=== PATIENT | female | born 1975 | race Caucasian/White ===

== ENCOUNTER 2018-01-27 11:25 | Emergency (ER) | payer SELFPAY ==
[~2018-01-27] VITALS: Ht 162.6 cm; Wt 86.0 kg
[~2018-01-27 11:25] MED LIST: AMOXICILLIN500 MG OR; AMOXICILLIN500 MG PO; CEPHALEXIN500 MG PO; CIPRO500 MG OR; CIPROFLOXACN500 MG PO; CLARITIN10 M1 PO; DIET PILL; ERYTHROMYCIN333 MG OR; LAMICTAL ODT50 MG OR; NAPROSYN500 MG OR; NAPROSYN500 MG PO; NO HOME MEDS; PENICILLN VK500 MG OR; PENICILLN VK500 MG PO; PERCOCET 5/325M1 TAB OR; PROZAC20 MG PO; PYRIDIUM200 MG PO; ROBITUSSIN AC10 ML PO; TESSALON PER100 MG PO; ULTRAM50 M1 OR; ULTRAM50 MG OR; WELLBUTRIN SR150 MG PO; ZOFRAN ODT4 MG PO; no home meds
[2018-01-27] MEDS ORDERED: MEDDOSEPAK PO (13:07)
[2018-01-27] MEDS ORDERED: PERCOGESI1 PO (13:07)
[2018-01-27 13:10] VITALS: BP 133/95
== END 2018-01-27 13:15 | disposition home or self-care (01) | DRG 552 ==
LOC: ED 11:25
DX: M54.41 Lumbago with sciatica, right side (principal); F17.210 Nicotine dependence, cigarettes, uncomplicated

== ENCOUNTER 2019-12-03 10:36 | Emergency (ER) | payer SELFPAY ==
[~2019-12-03] VITALS: Ht 162.6 cm; Wt 84.1 kg
[~2019-12-03 10:36] MED LIST changes: +MEDDOSEPAK PO; +PERCOGESI1 PO
[2019-12-03] MEDS ORDERED: KEFLEX500 MG PO ×2 (11:12→11:13)
[2019-12-03] MEDS ORDERED: ELIMITE52 TOP ×2 (11:12→11:13)
[2019-12-03 11:22] VITALS: BP 140/79
== END 2019-12-03 11:22 | disposition home or self-care (01) | DRG 607 ==
LOC: ED 10:36
DX: S30.860A Insect bite (nonvenomous) of lower back and pelvis, initial encounter (principal); S70.361A Insect bite (nonvenomous), right thigh, initial encounter; F17.210 Nicotine dependence, cigarettes, uncomplicated; L08.9 Local infection of the skin and subcutaneous tissue, unspecified; W57.XXXA Bitten or stung by nonvenomous insect and other nonvenomous arthropods, initial encounter

== ENCOUNTER 2020-12-25 03:47 | Emergency (ER) | payer SELFPAY ==
[~2020-12-25 03:47] MED LIST changes: +ELIMITE52 TOP; +KEFLEX500 MG PO
[2020-12-25] MEDS ORDERED: KEFLEX500 MG PO (04:09)
[2020-12-25 04:39] VITALS: BP 149/67
== END 2020-12-25 04:38 | disposition home or self-care (01) | DRG 607 ==
LOC: ED 03:47
DX: S80.862A Insect bite (nonvenomous), left lower leg, initial encounter (principal); S80.861A Insect bite (nonvenomous), right lower leg, initial encounter; L25.9 Unspecified contact dermatitis, unspecified cause; F17.200 Nicotine dependence, unspecified, uncomplicated; W57.XXXA Bitten or stung by nonvenomous insect and other nonvenomous arthropods, initial encounter; Y93.89 Activity, other specified; Y92.89 Other specified places as the place of occurrence of the external cause

== ENCOUNTER 2021-01-01 16:39 | Emergency (ER) | payer SELFPAY ==
[2021-01-02] MEDS ORDERED: OMNI-PAC300 MG PO (08:53)
[2021-01-02] MEDS ORDERED: BACTRIM DS1 TAB PO (08:53)
== END 2021-01-01 17:30 | disposition left against medical advice (07) | DRG 951 ==
LOC: ED 16:39 → LWOBS 17:30
DX: Z53.21 Procedure and treatment not carried out due to patient leaving prior to being seen by health care provider (principal)

== ENCOUNTER 2021-01-02 06:50 | Emergency (ER) | payer SELFPAY ==
[~2021-01-02] VITALS: Ht 162.6 cm; Wt 108.0 kg
[2021-01-02 08:49] LABS: HEMATOCRIT 42.8 % (37.0-47.0); HEMOGLOBIN 14.2 g/dl (12.0-16.0); IMMATURE GRANULOCYTES 0.3 % (0.0-5.0); MEAN CELL VOLUME 96.8 fL CALC (80.0-100.0); MEAN CORPUSCULAR HGB 32.1 pG CALC (26.0-32.0); MEAN CORPUSCULAR HGB CONC 33.2 g/dL CAL (32.0-36.0); NEUT# 5.91 thou/uL (2.00-7.15); RED BLOOD COUNT 4.42 mill/uL (4.20-5.60)
[2021-01-02 08:52] LABS: URINE BILIRUBIN - DIPSTICK NEGATIVE (NEGATIVE); URINE BLOOD DIPSTICK NEGATIVE (NEGATIVE); URINE COLOR YELLOW; URINE GLUCOSE - DIPSTICK NEGATIVE (NEGATIVE); URINE KETONE NEGATIVE (NEGATIVE); URINE LEUK ESTERASE NEGATIVE (NEGATIVE); URINE PH 5.5 (4.5-8.0); URINE PROTEIN - DIPSTICK NEGATIVE (NEG-TRACE); URINE SPECIFIC GRAVITY >=1.030; URINE UROBILINOGEN - DIPSTICK 0.2 E.U./dL (0.2)
[2021-01-02 08:53] LABS: URINE NITRITE - DIPSTICK NEGATIVE (Negative)
[2021-01-02] MEDS ORDERED: BACTRIM DS1 TAB PO (08:53)
[2021-01-02] MEDS ORDERED: OMNI-PAC300 MG PO (08:53)
[2021-01-02 08:58] LABS: ANION GAP 11 (6-22 (CALC)); BILIRUBIN, TOTAL 0.4 mg/dL (0.0-1.4); BUN 16 mg/dL (7-17); BUN/CREATININE RATIO 24 (12-20 (CALC)); CARBON DIOXIDE 28 mmol/l (22-30); CHLORIDE 100 mmol/l (95-108); CREATININE 0.7 mg/dL (0.5-1.0); ETHYL ALCOHOL 0 mg/dl (0-30); GFR > 60 ML/MIN (>=60 (CALC)); GFR FOR AFR.AMER. > 60 ML/MIN (>=60 (CALC)); LIPASE 53 u/l (23-300); MAGNESIUM 1.8 mg/dL (1.6-2.3); POTASSIUM 4.4 mmol/l (3.5-5.1); SGOT/AST 26 u/l (14-36); SODIUM 134 mmol/l (137-146)
[2021-01-02 09:00] LABS: ALBUMIN 4.1 g/dL (3.2-5.0); ALKALINE PHOSPHATASE 79 u/l (38-126)
[2021-01-02 09:10] VITALS: BP 136/76
== END 2021-01-02 09:09 | disposition left against medical advice (07) | DRG 603 ==
LOC: ED 06:50
PROVIDERS: Family Medicine
DX: L03.116 Cellulitis of left lower limb (principal); L03.115 Cellulitis of right lower limb; E66.9 Obesity, unspecified; F10.10 Alcohol abuse, uncomplicated; K76.0 Fatty (change of) liver, not elsewhere classified; F17.210 Nicotine dependence, cigarettes, uncomplicated; Z20.822 Contact with and (suspected) exposure to COVID-19

== ENCOUNTER 2022-03-17 09:44 | Emergency (ER) | payer SELFPAY ==
[~2022-03-17] VITALS: Ht 162.6 cm; Wt 100.0 kg
[~2022-03-17 09:44] MED LIST changes: +BACTRIM DS1 TAB PO; +OMNI-PAC300 MG PO
[2022-03-17 10:11] VITALS: BP 150/106
[2022-03-17 10:35] VITALS: BP 135/96
[2022-03-17 10:44] LABS: HEMATOCRIT 41.4 % (37.0-47.0); IMMATURE GRANULOCYTES 0.2 % (0.0-5.0); MEAN CELL VOLUME 94.5 fL CALC (80.0-100.0); MEAN CORPUSCULAR HGB CONC 33.8 g/dL CAL (32.0-36.0); NEUT# 6.88 thou/uL (2.00-7.15); RED BLOOD COUNT 4.38 mill/uL (4.20-5.60); RED CELL DISTRI WIDTH 12.1 % (11.5-15.5); URINE BILIRUBIN - DIPSTICK NEGATIVE (NEGATIVE); URINE BLOOD DIPSTICK LARGE (NEGATIVE); URINE COLOR YELLOW; URINE GLUCOSE - DIPSTICK NEGATIVE (NEGATIVE); URINE KETONE NEGATIVE (NEGATIVE); URINE LEUK ESTERASE NEGATIVE (NEGATIVE); URINE NITRITE - DIPSTICK NEGATIVE (Negative); URINE PROTEIN - DIPSTICK NEGATIVE (NEG-TRACE)
[2022-03-17 10:56] LABS: URINE RBC 50-100 RBC/hpf (0-5)
[2022-03-17 10:57] LABS: URINE SQUAMOUS EPITHELIAL CELL FEW EPI/hpf (0-FEW)
[2022-03-17 11:00] VITALS: BP 146/93
[2022-03-17 11:15] LABS: ALBUMIN 4.2 g/dL (3.2-5.0); ALKALINE PHOSPHATASE 66 u/l (38-126); ANION GAP 11 (6-22 (CALC)); BILIRUBIN, TOTAL 0.4 mg/dL (0.0-1.4); BUN 13 mg/dL (7-17); BUN/CREATININE RATIO 17 (12-20 (CALC)); CARBON DIOXIDE 27 mmol/l (22-30); CHLORIDE 104 mmol/l (95-108); CREATININE 0.8 mg/dL (0.5-1.0); ETHYL ALCOHOL 0 mg/dl (0-30); GFR FOR AFR.AMER. > 60 ML/MIN (>=60 (CALC)); GFR OTHER RACES > 60 ML/MIN (>=60 (CALC)); LIPASE 65 u/l (23-300); POTASSIUM 4.1 mmol/l (3.5-5.1); SGOT/AST 35 u/l (14-36); SODIUM 138 mmol/l (137-146); TOTAL PROTEIN 7.2 g/dL (6.3-8.2)
[2022-03-17 11:30] VITALS: BP 142/92
[2022-03-17 11:50] VITALS: BP 142/92
== END 2022-03-17 11:50 | disposition left against medical advice (07) | DRG 392 ==
LOC: ED 09:44
PROVIDERS: Family Medicine
DX: R10.9 Unspecified abdominal pain (principal); K76.0 Fatty (change of) liver, not elsewhere classified; F17.210 Nicotine dependence, cigarettes, uncomplicated; Z53.29 Procedure and treatment not carried out because of patient's decision for other reasons

== ENCOUNTER 2022-04-06 21:17 | Emergency (ER) | payer SELFPAY ==
[~2022-04-06] VITALS: Ht 162.6 cm; Wt 95.0 kg
[2022-04-06 21:23] VITALS: BP 146/87
[2022-04-06 21:31] VITALS: BP 127/84
[2022-04-06 22:01] VITALS: BP 129/82
[2022-04-06 22:39] LABS: URINE BILIRUBIN - DIPSTICK NEGATIVE (NEGATIVE); URINE BLOOD DIPSTICK NEGATIVE (NEGATIVE); URINE COLOR YELLOW; URINE GLUCOSE - DIPSTICK NEGATIVE (NEGATIVE); URINE KETONE NEGATIVE (NEGATIVE); URINE LEUK ESTERASE NEGATIVE (NEGATIVE); URINE PH 5.5 (4.5-8.0); URINE PROTEIN - DIPSTICK NEGATIVE (NEG-TRACE); URINE SPECIFIC GRAVITY >=1.030; URINE UROBILINOGEN - DIPSTICK 0.2 E.U./dL (0.2)
[2022-04-06 22:39] LABS: HEMATOCRIT 38.2 % (37.0-47.0); HEMOGLOBIN 12.8 g/dl (12.0-16.0); IMMATURE GRANULOCYTES 0.3 % (0.0-5.0); MEAN CELL VOLUME 95.3 fL CALC (80.0-100.0); MEAN CORPUSCULAR HGB 31.9 pG CALC (26.0-32.0); MEAN CORPUSCULAR HGB CONC 33.5 g/dL CAL (32.0-36.0); NEUT# 7.21 thou/uL (2.00-7.15); RED BLOOD COUNT 4.01 mill/uL (4.20-5.60); RED CELL DISTRI WIDTH 12.5 % (11.5-15.5)
[2022-04-06 22:40] LABS: URINE NITRITE - DIPSTICK NEGATIVE (Negative)
[2022-04-06 22:50] LABS: ALBUMIN 3.7 g/dL (3.2-5.0); ALKALINE PHOSPHATASE 62 u/l (38-126); ANION GAP 10 (6-22 (CALC)); BILIRUBIN, TOTAL 0.1 mg/dL (0.0-1.4); BUN 24 mg/dL (7-17); BUN/CREATININE RATIO 28 (12-20 (CALC)); CARBON DIOXIDE 24 mmol/l (22-30); CHLORIDE 109 mmol/l (95-108); CREATININE 0.8 mg/dL (0.5-1.0); GFR FOR AFR.AMER. > 60 ML/MIN (>=60 (CALC)); GFR OTHER RACES > 60 ML/MIN (>=60 (CALC)); POTASSIUM 3.9 mmol/l (3.5-5.1); SGOT/AST 25 u/l (14-36); SODIUM 139 mmol/l (137-146); TOTAL PROTEIN 6.4 g/dL (6.3-8.2)
[2022-04-07] MEDS ORDERED: ANTI-FUNGAL12 EX (00:13)
[2022-04-07] MEDS ORDERED: ULTRAM50 MG PO (00:14)
[2022-04-07 00:34] VITALS: BP 129/82
== END 2022-04-07 00:30 | disposition home or self-care (01) | DRG 552 ==
LOC: ED 21:17
PROVIDERS: Emergency Medicine
DX: S23.3XXA Sprain of ligaments of thoracic spine, initial encounter (principal); S20.211A Contusion of right front wall of thorax, initial encounter; W18.30XA Fall on same level, unspecified, initial encounter; F15.10 Other stimulant abuse, uncomplicated
CPT/HCPCS: Q9967

== ENCOUNTER 2024-04-20 10:56 | Emergency (ER) | payer OTHER ==
[~2024-04-20] VITALS: Ht 162.6 cm; Wt 220.0 kg
[~2024-04-20 10:56] MED LIST changes: +ANTI-FUNGAL12 EX; +ULTRAM50 MG PO
[2024-04-20 11:16] VITALS: BP 113/75
[2024-04-20] MEDS ORDERED: IPRATROPIUM-Albuterol 0.5MG-2.5MG/3 ML NEB ONE ×2 (11:30)
[2024-04-20 11:34] LABS: BASO% 0.2 % (0-3); EOS% 2.5 % (0-8); HEMATOCRIT 42.1 % (37.0-47.0); HEMOGLOBIN 14.3 g/dl (12.0-16.0); IMMATURE GRANULOCYTES 0.2 % (0.0-5.0); LYMPH% 20.7 % (15-41); MEAN CELL VOLUME 94.8 fL CALC (80.0-100.0); MEAN CORPUSCULAR HGB 32.2 pG CALC (26.0-32.0); MONO% 6.7 % (2-13); NEUT# 6.93 thou/uL (2.00-7.15); NEUT% 69.7 % (42-76); RED BLOOD COUNT 4.44 mill/uL (4.20-5.60); RED CELL DISTRI WIDTH 11.7 % (11.5-15.5)
[2024-04-20 11:50] LABS: ALBUMIN 3.9 g/dL (3.2-5.0); BUN 11 mg/dL (7-17); BUN/CREATININE RATIO 14 (12-20 (CALC)); CHLORIDE 101 mmol/l (95-108); CREATININE 0.8 mg/dL (0.5-1.0); ESTIMATED GFR 90 ML/MIN (>=90 (CALC)); POTASSIUM 3.9 mmol/l (3.5-5.1); SODIUM 138 mmol/l (137-146); TOTAL PROTEIN 6.9 g/dL (6.3-8.2)
[2024-04-20 11:54] LABS: ALKALINE PHOSPHATASE 129 u/l (38-126); ANION GAP 12 (6-22 (CALC)); BILIRUBIN, TOTAL 0.5 mg/dL (0.02-1.3); CARBON DIOXIDE 29 mmol/l (22-30); SGOT/AST 51 u/l (14-36)
[2024-04-20] MEDS ORDERED: guaiFENesin-CODEINE 200-20 MG/10 ML UDC PO ONE (12:50)
[2024-04-20] MEDS ORDERED: ZITHROMAX Z-PA250 MG PO (13:24)
[2024-04-20] MEDS ORDERED: CHERATUSSIN PO (13:24)
[2024-04-20] MEDS ORDERED: AZITHROMYCIN 250 MG/TAB PO ONE (13:25)
[2024-04-20] MEDS ORDERED: VENTOLIN HFA108 MCG PO (13:26)
[2024-04-20 13:36] VITALS: BP 128/84
== END 2024-04-20 14:23 | disposition home or self-care (01) | DRG 153 ==
LOC: ED 10:56
PROVIDERS: Family Medicine
DX: J06.9 Acute upper respiratory infection, unspecified (principal); K76.0 Fatty (change of) liver, not elsewhere classified; F17.200 Nicotine dependence, unspecified, uncomplicated; Z20.822 Contact with and (suspected) exposure to COVID-19

== ENCOUNTER 2024-05-11 12:56 | Emergency (ER) | payer OTHER ==
[2024-05-11] VITALS (8 sets, daily range): BP systolic 124–167; BP diastolic 74–103
[~2024-05-11] VITALS: Ht 162.6 cm; Wt 97.0 kg
[~2024-05-11 12:56] MED LIST changes: +CHERATUSSIN PO; +VENTOLIN HFA108 MCG PO; +ZITHROMAX Z-PA250 MG PO
[2024-05-11] MEDS ORDERED: IPRATROPIUM-Albuterol 0.5MG-2.5MG/3 ML NEB ONE (13:05)
[2024-05-11 13:27] LABS: BASO% 0.2 % (0-3); HEMATOCRIT 39.8 % (37.0-47.0); HEMOGLOBIN 13.4 g/dl (12.0-16.0); IMMATURE GRANULOCYTES 0.2 % (0.0-5.0); MEAN CELL VOLUME 93.4 fL CALC (80.0-100.0); MEAN CORPUSCULAR HGB 31.5 pG CALC (26.0-32.0); MEAN CORPUSCULAR HGB CONC 33.7 g/dL CAL (32.0-36.0); MONO% 7.5 % (2-13); NEUT# 4.29 thou/uL (2.00-7.15); NEUT% 53.6 % (42-76); RED BLOOD COUNT 4.26 mill/uL (4.20-5.60); RED CELL DISTRI WIDTH 12.1 % (11.5-15.5)
[2024-05-11 13:42] LABS: ALBUMIN 3.9 g/dL (3.2-5.0); ALKALINE PHOSPHATASE 92 u/l (38-126); ANION GAP 10 (6-22 (CALC)); BILIRUBIN, TOTAL 0.6 mg/dL (0.02-1.3); BUN 11 mg/dL (7-17); BUN/CREATININE RATIO 16 (12-20 (CALC)); CARBON DIOXIDE 25 mmol/l (22-30); CHLORIDE 107 mmol/l (95-108); CREATININE 0.7 mg/dL (0.5-1.0); ESTIMATED GFR 105 ML/MIN (>=90 (CALC)); POTASSIUM 3.7 mmol/l (3.5-5.1); SGOT/AST 50 u/l (14-36); SODIUM 138 mmol/l (137-146); TOTAL PROTEIN 6.8 g/dL (6.3-8.2)
[2024-05-11 13:57] LABS: LYMPH% 33.5 % (15-41)
[2024-05-11] MEDS ORDERED: Iopamidol 370 (Isovue) 76% 100 ML SDV IV ONE (14:00)
[2024-05-11] MEDS ORDERED: guaiFENesin-CODEINE 200-20 MG/10 ML UDC PO ONE (14:30)
[2024-05-11] MEDS ORDERED: methylPREDNISolone SODIUM SUCC 125 MG/2 ML SDV IV ONE (15:10)
[2024-05-11 18:38] LABS: URINE BILIRUBIN - DIPSTICK Negative (NEGATIVE); URINE BLOOD DIPSTICK Large (NEGATIVE); URINE COLOR Yellow; URINE GLUCOSE - DIPSTICK Negative (NEGATIVE); URINE KETONE Negative (NEGATIVE); URINE LEUK ESTERASE Negative (NEGATIVE); URINE NITRITE - DIPSTICK Negative (Negative); URINE PROTEIN - DIPSTICK Negative (NEG-TRACE); URINE SPECIFIC GRAVITY 1.015
[2024-05-11] MEDS ORDERED: DOXYCYCLINE HYCLATE 100 MG/CAP PO ONE (18:50)
[2024-05-11] MEDS ORDERED: PREDNISONE20 MG PO (18:57)
[2024-05-11] MEDS ORDERED: VIBRAMYCIN100 M2 PO (18:57)
[2024-05-11] MEDS ORDERED: BENZONATATE200 MG PO (18:57)
== END 2024-05-11 19:30 | disposition home or self-care (01) | DRG 195 ==
LOC: ED 12:56
PROVIDERS: Nurse Practitioner
DX: J18.9 Pneumonia, unspecified organism (principal)
CPT/HCPCS: Q9967

== ENCOUNTER 2024-08-02 00:03 | Emergency (ER) | payer OTHER ==
[~2024-08-02] VITALS: Ht 162.6 cm; Wt 125.0 kg
[~2024-08-02 00:03] MED LIST changes: +BENZONATATE200 MG PO; +PREDNISONE20 MG PO; +VIBRAMYCIN100 M2 PO
[2024-08-02] MEDS ORDERED: KETOROLAC TROMETHAMINE 30 MG/ML SDV IV ONE (00:25)
[2024-08-02 00:43] VITALS: BP 119/71
[2024-08-02 00:57] LABS: BASO% 0.3 % (0-3); EOS% 2.4 % (0-8); HEMATOCRIT 41.3 % (37.0-47.0); HEMOGLOBIN 13.9 g/dl (12.0-16.0); IMMATURE GRANULOCYTES 0.4 % (0.0-5.0); LYMPH% 9.8 % (15-41); MEAN CELL VOLUME 96.9 fL CALC (80.0-100.0); MEAN CORPUSCULAR HGB 32.6 pG CALC (26.0-32.0); MEAN CORPUSCULAR HGB CONC 33.7 g/dL CAL (32.0-36.0); MONO% 9.1 % (2-13); NEUT# 10.66 thou/uL (2.00-7.15); RED BLOOD COUNT 4.26 mill/uL (4.20-5.60); RED CELL DISTRI WIDTH 11.9 % (11.5-15.5)
[2024-08-02 01:20] LABS: ALBUMIN 3.8 g/dL (3.2-5.0); BILIRUBIN, TOTAL 0.6 mg/dL (0.02-1.3); CREATININE 0.7 mg/dL (0.5-1.0); POTASSIUM 4.2 mmol/l (3.5-5.1); TOTAL PROTEIN 6.6 g/dL (6.3-8.2)
[2024-08-02] MEDS ORDERED: TORADOL PO (02:30)
[2024-08-02] MEDS ORDERED: OMNICEF300 M1 PO (02:30)
[2024-08-02 03:06] VITALS: BP 110/66
== END 2024-08-02 03:06 | disposition home or self-care (01) | DRG 694 ==
LOC: ED 00:03
PROVIDERS: Emergency Medicine
DX: N23 Unspecified renal colic (principal); N13.30 Unspecified hydronephrosis; F17.200 Nicotine dependence, unspecified, uncomplicated; K76.0 Fatty (change of) liver, not elsewhere classified
CPT/HCPCS: J0696